=== PATIENT | female | born 1965 | race Caucasian/White ===

== ENCOUNTER 2023-12-19 11:58 | Emergency (ER) | payer OTHER, MEDICAID, SELFPAY ==
[2023-12-19] VITALS (15 sets, daily range): BP systolic 133–169; BP diastolic 63–89; PULSE 66–93; RESP 16–28; TEMP 37; O2SAT 92–98; BMI 25.6
--- NOTE | 2023-12-19 12:02 | DI.RAD.S_ITS ---
PROCEDURE: XR CHEST 1V INDICATIONS: chest pain TECHNIQUE: One view of the chest was acquired. COMPARISON: None. FINDINGS: Surgical changes and devices: None. Lungs and pleura: Lungs are clear. No pleural effusions or pneumothorax. Mediastinum: Mediastinal contours appear normal. Heart size is normal. Bones and chest wall: No suspicious bony lesions. Overlying soft tissues appear unremarkable. IMPRESSION: No acute cardiopulmonary abnormality is seen. Dictated by: Kodi Fierro M.D. on 12/19/2023 at 12:31 Approved by: Kodi Fierro M.D. on 12/19/2023 at 12:31
--- NOTE | 2023-12-19 12:06 | EKG_ITS ---
[place] [id number] [place] [id number] Test Date: 2023-12-19 [facility] Department: Room: Gender: Female Marine Scientist: GONZALO : 1965 Requested By: Order Number: [id number] Reading MD: Mauricio Howard Measurements Intervals Davey Rate: 87 P: 46 IN: 148 QRS: -1 QRSD: 86 T: 32 QT: 416 QTc: 500 Interpretive Statements Normal sinus rhythm Prolonged QT No prior tracing, significant artifact recommend repeat Electronically Signed On 12-22-2023 19:47:24 PDT by Mauricio Howard
--- NOTE | 2023-12-19 12:17 | ED_ITS ---
HPI - Chest Pain General Chief Complaint: Toxicology Problem Stated Complaint: poss heart attack, alc withdraws Time Seen by Provider: 12/19/23 12:05 Source: patient Mode of arrival: Ambulatory Limitations: no limitations Limitations: no limitations History of Present Illness HPI narrative: Patient is a 58-year-old female with past medical history of alcohol abuse, [place] comes into the ED from home for evaluation of right arm pain. States that this is similar to when she had a heart attack in the past. She states it is not the exact same, she states prior she had arm pain to her right arm which radiated to her neck and jaw, she has not experiencing this now. She states that she is trying to detox from alcohol and is not sure if this is associated with this. States that she normally drinks a 5th of vodka daily for the past several years, last drink was last night. States it was vodka. At time of initial evaluation patient not complaining of any shortness of breath but does appear severely anxious, with tremors. She is experiencing any SI or HI. Related Data Home Medications Medication Instructions Recorded Confirmed aspirin 81 mg tablet,delayed 81 mg PO DAILY 12/19/23 12/19/23 release atorvastatin 80 mg tablet 80 mg PO DAILY 12/19/23 12/19/23 fluoxetine 40 mg capsule 80 mg PO DAILY 12/19/23 12/19/23 hydroxyzine HCl 10 mg tablet 10 mg PO 3XD PRN anxiety 12/19/23 12/19/23 nitroglycerin 0.6 mg sublingual 0.6 mg sublingual DIRECTED PRN 12/19/23 12/19/23 tablet Chest Pain progesterone micronized 100 mg 100 mg PO ONCE PM 12/19/23 12/19/23 capsule ranolazine 1,000 mg 1,000 mg PO BID 12/19/23 12/19/23 tablet,extended release,12 hr trazodone 50 mg tablet 100 mg PO ONCE PM PRN Insomnia 12/19/23 12/19/23 Previous Rx's Medication Instructions Recorded chlordiazepoxide HCl 25 mg capsule See Rx Instructions .Route 12/19/23 .COMPLEX 12 doses #15 caps Allergies Allergy/AdvReac Type Severity Reaction Status Date / Time isosorbide [From Imdur] AdvReac Severe Headache Verified 12/19/23 12:42 Review of Systems Review of Systems Narrative: General: Anxiety HEENT: Denies headache, eye drainage, eye irritation, head trauma, sore throat, voice change Cardiovascular: Denies palpitations, shortness of breath, tachycardia, positive for chest pain and right arm pain Respiratory: Denies any shortness of breath, cough, wheeze, stridor GI/: Denies any abdominal pain, nausea, vomiting, diarrhea, bright red blood per rectum, melanotic stools, urinary frequency, urinary retention, dysuria, hematuria MSK: Denies any joint pain, muscle pains, swelling Skin: Denies any rashes, lesions, discoloration Neuro: Denies any headache, lightheadedness, dizziness, fainting, weakness Psych: Denies SI/HI Patient History Medical History (Updated 12/19/23 @ 17:37 by Mauricio Daugherty DO) Acute liver failure without hepatic coma Coronary artery disease involving coronary bypass graft of [place]ales heart with angina pectoris with documented spasm Acute coronary syndrome with high troponin Sleep disturbance Seasonal allergic rhinitis Alcohol use disorder Hypothyroidism History of substance abuse Major depressive disorder, recurrent PTSD (post-traumatic stress disorder) NSTEMI (non-ST elevated myocardial infarction) (~11/06/23) Surgical History (Updated 12/19/23 @ 12:41 by Hannah Kumar RN) History of bariatric surgery Social History Smoking Status: Current some day smoker Smoking Status: Current some day smoker tobacco type: cigarettes alcohol intake frequency: 3 or more drinks per day Alcohol type: beer and hard liquor Substance Use Type: does not use Exam Narrative Exam Narrative: General: Cooperative, comfortable, well-developed, positive for anxious, tremors mild diaphoresis noted HEENT: Normocephalic, atraumatic, PERRLA, normal sclera, eyelids normal, Neck: Active full range of motion, atraumatic Chest: Normal to inspection, negative crepitus, no overlying erythema ecchymosis Respiratory: Normal respiratory effort, not in acute respiratory distress, clear to auscultation bilaterally negative cough, wheeze, tachypnea, rhonchi, rales Cardiology: Regular rate rhythm negative gallop, murmur, rubs GI/: Normal to inspection, soft, nonrigid, no tenderness to palpation, exam deferred MSK: Full range of active range of motion of all 4 extremities, atraumatic Skin: No rashes lesions noted Neuro: Alert awake oriented x3, moves all 4 extremities spontaneously, cranial nerves intact, able to answer all questions appropriately follows commands appropriately Psych: Cooperative, negative suicidal or homicidal ideations Initial Vital Signs Initial Vital Signs: Vital Signs Pulse Rate 92 H 12/19/23 12:03 Pulse Oximetry 98 12/19/23 12:03 Scores HEART Score Heart Score history: Slightly Suspicious Heart Score EKG: Normal Heart Score Age: 45-64 years old Heart Score risk factors: 1-2 risk factors Heart Score troponin: < or = to normal limit Heart Score Total: 2 Course Course Course Narrative: Patient with CIWA 18 at my initial evaluation the patient Orders Ordered: ED Orders 12/19/23 12:02 XR chest 1V Stat EKG-12 Lead Stat 12/19/23 12:13 Acetaminophen Stat Complete Blood Count AUTO DIFF Stat Comprehensive Metabolic Panel Stat Ethanol (ETOH) Stat Free T4, Direct Thyroxine Stat Lipase Stat Magnesium Stat NT-proBNP (BNP-Adult 18+) Stat PTT Partial Thromboplastin Akbar Stat Prothrombin Time INR Stat Salicylate Stat Thyroid Stimulating Hormone Stat Troponin & CK Cardiac Panel Stat 12/19/23 13:32 Consult to [facility] - Extractions Technologist Stat 12/19/23 14:03 Troponin I Routine Discontinued Medications Aspirin (Aspirin 81 Mg Chew Tab) 324 mg PO NOW ONE Stop: 12/19/23 12:03 Last Admin: 12/19/23 12:23 Dose: 324 mg Documented By: ANN Folic Acid (Folic Acid 1 Mg Tablet) 1 mg PO NOW ONE Stop: 12/19/23 12:23 Last Admin: 12/19/23 13:26 Dose: 1 mg Documented By: HARPER Lorazepam (Lorazepam 2 Mg/Ml Inj) 1 mg IV NOW ONE Stop: 12/19/23 12:17 Last Admin: 12/19/23 12:24 Dose: 1 mg Documented By: ANN Lorazepam (Lorazepam 0.5 Mg Tablet) 1 mg PO NOW ONE Stop: 12/19/23 17:01 Last Admin: 12/19/23 17:12 Dose: 1 mg Documented By: ANN Ondansetron HCl (Ondansetron 4 Mg/2 Ml Inj) 4 mg IV NOW ONE Stop: 12/19/23 12:25 Last Admin: 12/19/23 12:30 Dose: 4 mg Documented By: ANN Thiamine HCl (Thiamine 100 Mg Tablet) 100 mg PO NOW ONE Stop: 12/19/23 12:23 Last Admin: 12/19/23 13:26 Dose: 100 mg Documented By: HARPER Vital Signs Vital signs: Vital Signs - 8 hr 12/19/23 12:03 12/19/23 12:04 12/19/23 12:04 Temperature Pulse Rate 92 H 88 Respiratory Rate Blood Pressure 133/81 Pulse Oximetry 98 97 Oxygen Delivery Method 12/19/23 12:10 12/19/23 12:30 12/19/23 12:30 Temperature 98.6 F Pulse Rate 93 H 78 Respiratory Rate 20 Blood Pressure 133/81 148/77 H Pulse Oximetry 97 95 Oxygen Delivery Method Room Air Room Air 12/19/23 13:00 12/19/23 13:00 12/19/23 13:30 Temperature Pulse Rate 71 68 Respiratory Rate 23 25 H Blood Pressure 144/72 H Pulse Oximetry 92 95 Oxygen Delivery Method Room Air 12/19/23 13:30 12/19/23 14:00 12/19/23 14:00 Temperature Pulse Rate 66 Respiratory Rate 18 Blood Pressure 155/72 H 160/74 H Pulse Oximetry 93 Oxygen Delivery Method 12/19/23 14:30 12/19/23 14:30 12/19/23 15:00 Temperature Pulse Rate 69 Respiratory Rate 17 Blood Pressure 145/65 H 155/83 H Pulse Oximetry 92 Oxygen Delivery Method Room Air 12/19/23 15:00 12/19/23 15:30 12/19/23 15:30 Temperature Pulse Rate 74 68 Respiratory Rate 16 17 Blood Pressure 153/67 H Pulse Oximetry 96 93 Oxygen Delivery Method Room Air Room Air 12/19/23 16:00 12/19/23 16:00 12/19/23 16:31 Temperature Pulse Rate 75 81 Respiratory Rate 28 H Blood Pressure 169/81 H Pulse Oximetry 95 Oxygen Delivery Method Room Air 12/19/23 16:32 12/19/23 16:32 12/19/23 17:00 Temperature Pulse Rate 77 87 Respiratory Rate 19 25 H Blood Pressure 165/89 H Pulse Oximetry 94 97 Oxygen Delivery Method Room Air 12/19/23 17:00 12/19/23 17:30 12/19/23 17:30 Temperature Pulse Rate 85 Respiratory Rate 25 H Blood Pressure 142/63 H 162/87 H Pulse Oximetry 96 Oxygen Delivery Method Room Air MDM - Chest Pain Lab Data 12/19/23 12:13 12/19/23 12:13 Labs: Lab Results 12/19/23 12/19/23 Range/Units 12:13 14:03 WBC 6.9 (4.5-11.0) X10^3/uL RBC 3.72 L (4.0-5.2) X10^6/uL Hgb 12.3 (12.0-16.0) g/dL Hct 36.0 (36-46) % MCV 96.7 (80-100) fL MCH 33.0 (26-34) PG MCHC 34.2 (30-36) % RDW 14.5 (11.6-14.8) % Plt Count 320 (150-400) X10^3/uL Neut % (Auto) 72.0 (50-75) % Lymph % (Auto) 20.6 L (25-40) % [place] % (Auto) 6.1 (3-14) % Eos % (Auto) 0.6 L (2-4) % Baso % (Auto) 0.7 (0-2) % Neut # (Auto) 5000 (7626-2219) /uL Lymph # (Auto) 1400 (1624-9926) /uL [place] # (Auto) 400 (0-900) /uL Eos # (Auto) 0 (0-450) /uL Baso # (Auto) 0 (0-100) /uL PT 11.8 (9.4-12.5) SECONDS INR 1.0 (0.9-1.3) APTT 34 (25.1-36.5) SECONDS Sodium 135 L (137-145) mmol/L Potassium 3.8 (3.4-5.1) mmol/L Chloride 101 (98-107) mmol/L Carbon Dioxide 28 (22-32) mmol/L BUN 13 (7-17) mg/dL Creatinine 0.68 (0.52-1.04) mg/dL Estimated GFR > 60 (>60) mL/min BUN/Creatinine Ratio 19.1 (6-22) Glucose 96 (80-110) mg/dL Calcium 8.6 (8.4-10.2) mg/dL Magnesium 1.7 (1.6-2.3) mg/dL Total Bilirubin 0.5 (0.2-1.3) mg/dL AST 55 H (14-36) IU/L ALT 41 H (<35) IU/L Alkaline Phosphatase 100 (38-126) U/L Total Creatine Kinase 96 (30-135) U/L Troponin I < 0.012 < 0.012 (0.01-0.034) ng/mL NT-Pro-B Natriuret Pep 415 H (<125) pg/mL Total Protein 7.1 (6.3-8.2) g/dL Albumin 3.9 (3.5-5.0) g/dL Globulin 3.2 (1.7-4.1) g/dL Albumin/Globulin Ratio 1.2 (1.0-2.8) Lipase 32 (23-300) U/L TSH 1.16 (0.47-4.68) uIU/mL Free T4 0.87 (0.78-2.19) ng/dL Salicylates 2.1 (<20) mg/dL Acetaminophen < 10 (10-30) ug/mL Ethyl Alcohol < 10 ( - 10) mg/dL Imaging Data Chest x-ray: Radiologist's Impression: [address] [address] XRay Report Signed Patient: Zurdo Londono MR#: [id number] : 1965 Acct:[id number] Age/Sex: 58 / F Date of Service: 12/19/23 Loc: ED Accession Number: [id number] Procedure: XR chest 1V Ordering Provider: Mauricio Daugherty D.O. PROCEDURE: XR CHEST 1V INDICATIONS: chest pain TECHNIQUE: One view of the chest was acquired. COMPARISON: None. FINDINGS: Surgical changes and devices: None. Lungs and pleura: Lungs are clear. No pleural effusions or pneumothorax. Mediastinum: Mediastinal contours appear normal. Heart size is normal. Bones and chest wall: No suspicious bony lesions. Overlying soft tissues appear unremarkable. IMPRESSION: No acute cardiopulmonary abnormality is seen. ECG Data Interpretation: EKG interpreted by ED physician sinus at 87 beats per minute QTC 500, significant amount artifact however no obvious signs of STEMI normal axis MDM Narrative Medical decision making narrative: Patient is a 58-year-old female past medical history of NSTEMI, hyperlipidemia, alcohol abuse comes into the ED for evaluation multiple complaints. States that she is trying to detox and is also experiencing right arm pain, she states this is similar to when she had a heart attack, however she states that when she was told she had a heart attack the pain radiated up into her neck and jaw, however this time this is not happening. States that she follows with [email or web address]. She also states that her last drink of alcohol was yesterday was 1/5 of vodka. States that she has been doing this for several years is asking for detox. 1304: Obtained records from [email or web address], reviewed records of patient's cardiac catheterization, patient did not have stent placed, patient did have severe stenosis in the small sub branch of a septal engine tester and mild stenosis of the LAD with a right dominant coronary, no other acute findings on the catheter report. This was performed on 11/05/2022. Patient's last echo performed on 11/05/2022 did show left ejection fraction at 55% Patient with heart score of 2, ecg no nischemic in nature, cxr noraml, trop negative x2. Patients symptoms more associated with etoh intox. Patient was seen by social and human services assistant here in the ED, she will follow up with out patient detox tomorrow. Patient will be sent home with rx of librium for etoh withdrawal. patient states her friend took all of the alcohol from her home and states that she will not drink and will go to rehab tomorrow for her bed. Patient well appearing non toxic, ciwa 3 at time of discharge. Discharge Plan Departure Patient Disposition: Home Clinical Impression: Alcoholic intoxication Activity Restrictions/Additional Instructions: Please read the discharge instructions sheet carefully and bring all papers to all doctor follow-up visits, as it may contain information that your doctor may want to see. Disease processes change and evolve, if your symptoms worsen or if you develop any new symptoms that are concerning to you please return for evaluation. Your evaluation today does not show any evidence of any life- threatening/serious illnesses requiring admission to the hospital or surgery. Please follow-up with your doctor for re-evaluation in approximately 1 day. Seek immediate medical attention for any worrisome symptoms. Prescriptions: New chlordiazepoxide HCl 25 mg capsule See Rx Instructions .ROUTE .COMPLEX Qty: 15 0RF Rx Instructions: 50 mg orally ;Day 1: 50mg [id number] 2: 50mg [id number] 3: 50mg [id number] 4: 50mg [id number] 5: 50mg POqhs No Action fluoxetine 40 mg capsule 80 mg PO DAILY trazodone 50 mg tablet 100 mg PO ONCE PM PRN (Reason: Insomnia) aspirin 81 mg tablet,delayed release (DR/EC) 81 mg PO DAILY nitroglycerin 0.6 mg tablet, sublingual 0.6 mg sublingual DIRECTED PRN (Reason: Chest Pain) hydroxyzine HCl 10 mg tablet 10 mg PO 3XD PRN (Reason: anxiety) progesterone micronized 100 mg capsule 100 mg PO ONCE PM ranolazine 1,000 mg tablet extended release 12 hr 1,000 mg PO BID atorvastatin 80 mg tablet 80 mg PO DAILY Stand Alone Forms: Patient Portal/API
[2023-12-19 12:20] LABS: Add Manual Diff / Slide Review NO; Basophils Absolute Auto 0 /uL (0-100); Basophils Percent Auto 0.7 % (0-2); Eosinophils Absolute Auto 0 /uL (0-450); Eosinophils Percent Auto 0.6 % (2-4); Hemoglobin 12.3 g/dL (12.0-16.0); Lymphocytes Absolute Auto 1400 /uL (1100-4500); Lymphocytes Percent Auto 20.6 % (25-40); Mean Corpuscular HGB Conc 34.2 % (30-36); Mean Corpuscular Volume 96.7 fL (80-100); Monocytes Absolute Auto 400 /uL (0-900); Monocytes Percent Auto 6.1 % (3-14); Neutrophils Absolute Auto 5000 /uL (1500-7000); Platelet Count 320 X10^3/uL (150-400); Red Blood Cell Count 3.72 X10^6/uL (4.0-5.2); Red Cell Distribution Width 14.5 % (11.6-14.8); White Blood Cell Count 6.9 X10^3/uL (4.5-11.0)
[2023-12-19] MEDS: ASPIRIN 81 MG CHEW TAB 324 MG PO (12:23)
[2023-12-19] MEDS: LORazepam 2 MG/ML INJ 1 MG IV (12:24)
[2023-12-19 12:28] LABS: Prothrombin Time 11.8 SECONDS (9.4-12.5)
[2023-12-19] MEDS: ONDANSETRON 4 MG/2 ML INJ IV (12:30)
[2023-12-19 12:31] LABS: PTT Partial Thromboplastin Tim 34 SECONDS (25.1-36.5)
[2023-12-19 12:33] LABS: Acetaminophen < 10 ug/mL (10-30); Alanine Aminotransferase 41 IU/L (<35); Albumin 3.9 g/dL (3.5-5.0); Albumin Globulin Ratio 1.2 (1.0-2.8); Alkaline Phosphatase 100 U/L (38-126); Aspartate Aminotransferase 55 IU/L (14-36); BUN Creatinine Ratio 19.1 (6-22); Bilirubin Total 0.5 mg/dL (0.2-1.3); Blood Urea Nitrogen 13 mg/dL (7-17); Calcium 8.6 mg/dL (8.4-10.2); Carbon Dioxide 28 mmol/L (22-32); Chloride 101 mmol/L (98-107); Creatine Kinase 96 U/L (30-135); Estimated Glomerular Filt Rate > 60 mL/min (>60); Ethanol (ETOH) < 10 mg/dL; Globulin 3.2 g/dL (1.7-4.1); Glucose 96 mg/dL (80-110); Lipase 32 U/L (23-300); Magnesium 1.7 mg/dL (1.6-2.3); Potassium 3.8 mmol/L (3.4-5.1); Salicylate 2.1 mg/dL (<20); Sodium 135 mmol/L (137-145); Total Protein 7.1 g/dL (6.3-8.2)
[2023-12-19 12:34] LABS: HEMOLYSIS 55 (0-50)
[2023-12-19 12:44] LABS: NT-proBNP (BNP-Adult 18+) 415 pg/mL (<125); Troponin I < 0.012 ng/mL (0.01-0.034)
[2023-12-19 12:55] LABS: Free T4, Direct Thyroxine 0.87 ng/dL (0.78-2.19)
[2023-12-19 13:09] LABS: Thyroid Stimulating Hormone 1.16 uIU/mL (0.47-4.68)
[2023-12-19] MEDS: THIAMINE 100 MG TABLET PO (13:26)
[2023-12-19] MEDS: FOLIC ACID 1 MG TABLET PO (13:26)
[2023-12-19 14:50] LABS: Troponin I < 0.012 ng/mL (0.01-0.034)
--- NOTE | 2023-12-19 17:02 | CM.SWNOTE ---
ED CUSTOMER SUCCESS SPECIALIST Assessment Note: CUSTOMER SUCCESS SPECIALIST - Anchor Tacker Assessment CUSTOMER SUCCESS SPECIALIST/Anchor Tacker Assessment Time Spent with Patient Start date 12/19/23 Visit Start Time 15:45 End date 12/19/23 Visit End Time 16:00 Total time Care Management spent on 15 minutes patient visit-in minutes Substance Abuse Screening Include Onset, Duration, Intensity Presenting Problem Patient presents to the ED for ETOH withdrawal, requesting assistance with detox. Precipitating Event(s) Patient reports she has been drinking a lot which includes 1/2 a bottle of vodka and several [place] drinks , daily. Patient explains she has been under a lot of stress due to a recent move from [place] to [place]. Patient Strengths Patient has attempted detox and rehab in the past, was attempting outpatient treatment. Patient is self- aware and communicative. Current Behavioral Health Provider(s) Patient was seeing a [facility], Provider, Ph. # SUDP at [facility] ( ). Patient's PCP is Dr. Jonathon Bello at [facility] in [place]. Family Hx of Behavioral Abuse Patient explains there is hx of ETOH use on her mother's side. Rehab Facilities? ((Date(s), Location(s) 30-day Rehab at [facility], pt could not recall dates (recent). History of Withdrawal? Seizures? Patient has withdrawn in the past and experienced hallucinations and seizures. Longest Period of Sobriety 6 months. Psychosocial information & Support Patient is a 58yo female, Systems resident of [place], supported by her friend, Ying Delacruz and her brother . School/Work Patient is not currently working. Legal Concerns Legal Matters - Outstanding Issues None reported. Mental Status Orientation (Person/Place/Time) AOx3 Stated Mood calmer Affect (Congruent with Mood?) Congruent with mood, euthymic Thought Content - Specify/Describe Patient explains she sometimes Obsessions, Delusions, Hallucinations hears conversations with family members who are talking about me. Patient denies any Visual hallucinations. Thought Processes (Zhbyvdg-Jdsauzri-Suap Logical, coherent Yuxyaair-Hdgjmqeg-Xxaootdnuw- Lnriksepcljgza-Wlouymf-Jegjobjwbsmb- Thought Blocking) Speech (Gfmrcc-Mhsn-Yohqlgo-Rapid-Soft- Normal Loud-Pressured) Motor (Bujlnp-Sqzqsktie-Zicg-Other) Normal, tremulous Insight (Ohhc-Ianb-Eqqp/Limited) Fair Judgement (Ftpp-Jthx-Wvko/Limited) Fair Impulse Control (Adequate-Impaired) Impaired Memory (Myuxsbzuf-Jqobik-Xucyjz, Intact Impaired-Intact) Concentration (Intact-Impaired) Intact Attention (Intact-Impaired) Intact Behavior (Appropriate-Inappropriate) Appropriate Additional Comment Patient is calm, cooperative and communciative during assessment. Risk Assessment Suicidal Ideation (Plan) No Homicidal Ideation (Plan) No Intervention Intervention CUSTOMER SUCCESS SPECIALIST meets with patient. Patient reports daily ETOH use and is requesting detox referral, pt was able to give history of detox and rehab. Patient is hopeful for more intensive [facility] counseling and medication therapy, post detox . At this time, it is the opinion of this CUSTOMER SUCCESS SPECIALIST that patient would benefit from ETOH detox and [facility] IOP to follow. CUSTOMER SUCCESS SPECIALIST informs ED provider, Dr. Daugherty who indicates agreement. CUSTOMER SUCCESS SPECIALIST informs QUINN Chávez . Plan RA Plan Once patient is medically clear, ED staff will attempt to find inpatient placement for patient. MJ Luis
[2023-12-19] MEDS: LORazepam 0.5 MG TABLET 1 MG PO (17:12)
--- NOTE | 2023-12-19 17:37 | CM.SWNOTE ---
ED DEPUTY HEAD Note: ED DEPUTY HEAD [facility], it is reported there are beds available and to send a packet for review. ED DEPUTY HEAD called [facility], it is reported there are no beds available today. ED DEPUTY HEAD sent a packet to [facility], it is reported that beds are no longer available and that pt will be reviewed for tomorrow. ED DEPUTY HEAD coordinated a phone screening with pt with [facility], provided phone number. Pt briefed regarding review of packet for intake tomorrow, pt verbalized understanding. Pt feels safe with discharging home with librium prescription, all alcohol has been disposed of and removed from her home by her friend. Pt to follow up with [facility] tomorrow morning. ED Provider and RN were briefed with the above, verbalized understanding. Plan: Pt to follow up with [facility] tomorrow morning with number provided, follow up with [facility] for [facility] IOP following detox. MJ Luis
--- NOTE | 2023-12-19 18:45 | PC.NURSE ---
Confirmed prescription w/ Dr. Martinez per [facility] request. Quantity needed to be adjusted to quantity sufficient
== END 2023-12-19 18:02 | disposition home or self-care (01) ==
PROVIDERS: Emergency Provider Student in an Organized Health Care Education/Training Program
DX: F10.129 Alcohol abuse with intoxication, unspecified (principal); R07.9 Chest pain, unspecified; E78.5 Hyperlipidemia, unspecified; I25.2 Old myocardial infarction
CPT/HCPCS: 36415; 71045; 80053; 80320; 80329; 82550; 83690; 83735; 83880; 84439; 84443; 84484; 85025; 85610; 85730; 93005; 96374; 96375; 99284; G0480; J2060; J2405

== ENCOUNTER 2024-04-03 17:03 | Emergency (ER) | payer OTHER, SELFPAY ==
[2024-04-03] VITALS (11 sets, daily range): BP systolic 116–173; BP diastolic 63–95; PULSE 70–94; RESP 17–25; TEMP 36.7; O2SAT 91–99
[2024-04-03 17:19] LABS: Add Manual Diff / Slide Review NO; Basophils Absolute Auto 0 /uL (0-100); Basophils Percent Auto 0.3 % (0-2); Eosinophils Absolute Auto 0 /uL (0-450); Eosinophils Percent Auto 0.7 % (2-4); Hematocrit 42.9 % (36-46); Hemoglobin 14.2 g/dL (12.0-16.0); Lymphocytes Absolute Auto 1900 /uL (1100-4500); Lymphocytes Percent Auto 35.9 % (25-40); Mean Corpuscular HGB Conc 33.2 % (30-36); Mean Corpuscular Hemoglobin 33.5 PG (26-34); Monocytes Absolute Auto 600 /uL (0-900); Monocytes Percent Auto 11.6 % (3-14); Neutrophils Absolute Auto 2700 /uL (1500-7000); Neutrophils Percent Auto 51.5 % (50-75); Platelet Count 319 X10^3/uL (150-400); Red Blood Cell Count 4.25 X10^6/uL (4.0-5.2); Red Cell Distribution Width 14.6 % (11.6-14.8); White Blood Cell Count 5.3 X10^3/uL (4.5-11.0)
[2024-04-03 17:27] LABS: Alanine Aminotransferase 97 IU/L (<35); Albumin 3.7 g/dL (3.5-5.0); Albumin Globulin Ratio 1.2 (1.0-2.8); Alkaline Phosphatase 149 U/L (38-126); Aspartate Aminotransferase 208 IU/L (14-36); BUN Creatinine Ratio 16.2 (6-22); Bilirubin Total 0.7 mg/dL (0.2-1.3); Blood Urea Nitrogen 11 mg/dL (7-17); Calcium 8.4 mg/dL (8.4-10.2); Carbon Dioxide 24 mmol/L (22-32); Chloride 99 mmol/L (98-107); Estimated Glomerular Filt Rate > 60 mL/min (>60); Ethanol (ETOH) < 10 mg/dL; Globulin 3.2 g/dL (1.7-4.1); Glucose 107 mg/dL (80-110); HEMOLYSIS 34 (0-50); Potassium 3.5 mmol/L (3.4-5.1); Sodium 134 mmol/L (137-145); Total Protein 6.9 g/dL (6.3-8.2)
[2024-04-03 17:41] LABS: Lipase 75 U/L (23-300)
[2024-04-03] MEDS: PHENobarbital 65 MG/ML VIAL 260 MG IV (17:42)
[2024-04-03] MEDS: LORazepam 2 MG/ML INJ 1 MG IV (17:42)
[2024-04-03] MEDS: SODIUM CHLORIDE 0.9% 1,000 ML 1000 ML IV (17:42)
--- NOTE | 2024-04-03 18:22 | EKG_ITS ---
[address] [address] Test Date: 2024-04-03 Pat [facility] Department[facility] Room: Gender: Female Access Database Developer: CASSI : 1965 Requested By: Order Number: [id number] Reading MD: Jt Padron Measurements Intervals [place] Rate: 86 P: 58 AK: 180 QRS: -2 QRSD: 74 T: 16 QT: 410 QTc: 490 Interpretive Statements Normal sinus rhythm Prolonged QT Electronically Signed On 04-05-2024 18:32:36 PST by Jt Padron
--- NOTE | 2024-04-03 18:57 | ED.ALCOHOL ---
HPI - Alcohol General Chief Complaint: Toxicology Problem Stated Complaint: etoh withdrawal Time Seen by Provider: 04/03/24 18:56 Source: patient, EMS, RN notes reviewed and old records reviewed Mode of arrival: EMS Limitations: no limitations History of Present Illness HPI narrative: 59-year-old female past medical history of alcohol abuse, [place] presents with complaint of alcohol withdrawal. Patient states last full drink was yesterday had some sips today received 4 mg of Versed and transport with EMS with a reported CIWA of greater than 15 per EMS. Describes tremors reports seizures with withdrawal in the past. Patient states she was recently been binge drinking had missed several doctors appointments recently. She has not had any hallucinations or seizure activity, she has had some mild tremors some nausea and vomiting, no chest pain no shortness of breath she was felt very anxious. She was has a lot of diarrhea but states that has actually been going on for some time. States she recently was treated for kidney infection which has not improved she denies any urinary symptoms. Home medications include ran a lysine, atorvastatin, metoprolol,, Prozac, hydroxyzine, trazodone vitamins B1 and B12 as well as vitamins. Prior surgeries or hernia repair, appendectomy accept for endometriosis. Patient states she had a heart catheterization with her [place] but did not require cardiac stents. Has not allergy to isosorbide described as headache. Occasional tobacco but not regularly. States she was having about a 5th of vodka and claws daily. No, no recreational drugs. Dr. Anton is her primary care physician. She does still follow regularly with Cardiology. Related Data Home Medications Medication Instructions Recorded Confirmed aspirin 81 mg tablet,delayed 81 mg PO DAILY 12/19/23 12/19/23 release atorvastatin 80 mg tablet 80 mg PO DAILY 12/19/23 12/19/23 fluoxetine 40 mg capsule 80 mg PO DAILY 12/19/23 12/19/23 hydroxyzine HCl 10 mg tablet 10 mg PO 3XD PRN anxiety 12/19/23 12/19/23 nitroglycerin 0.6 mg sublingual 0.6 mg sublingual DIRECTED PRN 12/19/23 12/19/23 tablet Chest Pain progesterone micronized 100 mg 100 mg PO ONCE PM 12/19/23 12/19/23 capsule ranolazine 1,000 mg 1,000 mg PO BID 12/19/23 12/19/23 tablet,extended release,12 hr trazodone 50 mg tablet 100 mg PO ONCE PM PRN Insomnia 12/19/23 12/19/23 Previous Rx's Medication Instructions Recorded chlordiazepoxide HCl 25 mg capsule See Rx Instructions .Route 12/19/23 .COMPLEX 12 doses #15 caps chlordiazepoxide HCl 25 mg capsule See Rx Instructions .Route 04/03/24 .COMPLEX #11 caps Allergies Allergy/AdvReac Type Severity Reaction Status Date / Time isosorbide [From Imdur] AdvReac Severe Headache Verified 04/03/24 17:30 Review of Systems Review of Systems ROS Unobtainable: All systems reviewed & are unremarkable except as noted in HPI and below Patient History Medical History Acute liver failure without hepatic coma Coronary artery disease involving coronary bypass graft of [place] heart with angina pectoris with documented spasm Acute coronary syndrome with high troponin Sleep disturbance Seasonal allergic rhinitis Alcohol use disorder Hypothyroidism History of substance abuse Major depressive disorder, recurrent PTSD (post-traumatic stress disorder) NSTEMI (non-ST elevated myocardial infarction) (~11/06/23) Surgical History History of bariatric surgery Social History Smoking Status: Current some day smoker Smoking Status: Current some day smoker tobacco type: cigarettes alcohol intake frequency: 3 or more drinks per day Alcohol type: beer and hard liquor Exam Narrative Exam Narrative: GENERAL: Alert and oriented x three, female in mild distress. HEENT: Head normocephalic, atraumatic, EOMI, pupils reactive, face symmetric, moist mucous membranes NECK: Supple, full range of motion CARDIOVASCULAR: Regular rate and rhythm without murmurs, rubs or gallops. RESPIRATORY: Breath sounds equal bilaterally, no wheezes rales or rhonchi. ABDOMEN: Soft, nontender. Normoactive bowel sounds all 4 quadrants. No guarding or rebound, rigidity, no mass : No CVA tenderness EXTREMITIES: Normal range of motion, no clubbing or edema. Neurovascularly intact NEUROLOGICAL: Cranial nerves II through XII grossly intact. Moving all extremities. No tremor. SKIN: Warm, dry, no petechiae, no rashes or lesions. Initial Vital Signs Initial Vital Signs: Vital Signs Temperature 98.1 F 04/03/24 17:05 Pulse Rate 84 04/03/24 17:05 Respiratory Rate 17 04/03/24 17:05 Blood Pressure 173/95 H 04/03/24 17:05 Pulse Oximetry 99 04/03/24 17:05 Oxygen Delivery Method Room Air 04/03/24 17:05 Course Orders Ordered: Discontinued Medications Hydroxyzine HCl (Hydroxyzine Hcl 25 Mg Tablet) 25 mg PO NOW ONE Stop: 04/03/24 20:34 Last Admin: 04/03/24 20:44 Dose: 25 mg Documented By: EPIFANIO Sodium Chloride (Normal Saline 0.9%) 1,000 mls @ 1,000 mls/hr IV BOLUS ONE Stop: 04/03/24 18:11 Last Infusion: 04/03/24 18:32 Dose: Infused Documented By: Infusion: 04/03/24 18:32 Dose: 0 mls/hr Documented By: Admin: 04/03/24 17:42 Dose: 1,000 mls/hr Documented By: GREGORY Lorazepam (Lorazepam 2 Mg/Ml Inj) 1 mg IV NOW ONE Stop: 04/03/24 17:13 Last Admin: 04/03/24 17:42 Dose: 1 mg Documented By: GREGORY Phenobarbital (Phenobarbital 65 Mg/Ml Vial) 260 mg IV NOW ONE Stop: 04/03/24 17:13 Last Admin: 04/03/24 17:42 Dose: 260 mg Documented By: GREGORY Vital Signs Vital signs: Vital Signs - 8 hr 04/03/24 17:05 04/03/24 17:09 04/03/24 17:30 Temperature 98.1 F Pulse Rate 84 94 H 84 Respiratory Rate 17 25 H 17 Blood Pressure 173/95 H Pulse Oximetry 99 98 95 Oxygen Delivery Method Room Air 04/03/24 17:46 04/03/24 17:46 04/03/24 18:00 Temperature Pulse Rate 78 76 Respiratory Rate 20 19 Blood Pressure 148/67 H Pulse Oximetry 97 91 Oxygen Delivery Method 04/03/24 18:00 04/03/24 18:30 04/03/24 18:30 Temperature Pulse Rate 70 Respiratory Rate 20 Blood Pressure 134/71 140/79 Pulse Oximetry 91 Oxygen Delivery Method 04/03/24 19:00 04/03/24 19:00 Temperature Pulse Rate 72 Respiratory Rate 20 Blood Pressure 116/63 Pulse Oximetry 91 Oxygen Delivery Method MDM - Alcohol Lab Data 04/03/24 16:50 04/03/24 16:50 Labs: Lab Results 04/03/24 Range/Units 16:50 WBC 5.3 (4.5-11.0) X10^3/uL RBC 4.25 (4.0-5.2) X10^6/uL Hgb 14.2 (12.0-16.0) g/dL Hct 42.9 (36-46) % MCV 101.0 H (80-100) fL MCH 33.5 (26-34) PG MCHC 33.2 (30-36) % RDW 14.6 (11.6-14.8) % Plt Count 319 (150-400) X10^3/uL Neut % (Auto) 51.5 (50-75) % Lymph % (Auto) 35.9 (25-40) % [place] % (Auto) 11.6 (3-14) % Eos % (Auto) 0.7 L (2-4) % Baso % (Auto) 0.3 (0-2) % Neut # (Auto) 2700 (5766-8924) /uL Lymph # (Auto) 1900 (1275-5381) /uL [place] # (Auto) 600 (0-900) /uL Eos # (Auto) 0 (0-450) /uL Baso # (Auto) 0 (0-100) /uL Sodium 134 L (137-145) mmol/L Potassium 3.5 (3.4-5.1) mmol/L Chloride 99 (98-107) mmol/L Carbon Dioxide 24 (22-32) mmol/L BUN 11 (7-17) mg/dL Creatinine 0.68 (0.52-1.04) mg/dL Estimated GFR > 60 (>60) mL/min BUN/Creatinine Ratio 16.2 (6-22) Glucose 107 (80-110) mg/dL Calcium 8.4 (8.4-10.2) mg/dL Total Bilirubin 0.7 (0.2-1.3) mg/dL AST 208 H (14-36) IU/L ALT 97 H (<35) IU/L Alkaline Phosphatase 149 H (38-126) U/L Total Protein 6.9 (6.3-8.2) g/dL Albumin 3.7 (3.5-5.0) g/dL Globulin 3.2 (1.7-4.1) g/dL Albumin/Globulin Ratio 1.2 (1.0-2.8) Lipase 75 (23-300) U/L Ethyl Alcohol < 10 ( - 10) mg/dL ECG Data Attestation: I personally reviewed and interpreted this ECG as follows: Prior ECG tracings: available for review Interpretation: Normal sinus rhythm rate 86 VA 180 QRS is 74 QTC of 490, no acute ST elevation or depression noted. Patient has prior EKG from 12/19/2023 overall appears similar. MDM Narrative Medical decision making narrative: [age] female presents with complaint of alcohol withdrawal had reported CIWA greater than 15 in the field with EMS received Versed, also received fentanyl Monika tall and lorazepam here in the department she was feeling significantly improved CIWA prior to my evaluation was 1. Labs show white count of 5.3 hemoglobin of 14 platelets of 319. Sodium is 134 potassium 3.5 chloride 99 CO2 is 24 BUN 11 creatinine 0.68 glucose of 107 bilirubin is 0.7 with a AST of 208 ALT of 97 alk-phos of 149 lipase is 75. Alcohol is less than 10 Patient received lorazepam, phenobarbital and 1 L of normal saline. Patient is feeling much improved at this time. Discussed with patient if she was interested in having it inpatient detox versus outpatient treatment. Patient's initially unsure because she has a dog in his unsure if she has anyone that can watch her dog. After further discussion patient elects to return. She continues to feel improved. We will give a short course of oral medication. She was open KEY ACCOUNT MANAGER reaching out to the patient tomorrow. Discharge Plan Departure Patient Disposition: Home Clinical Impression: Alcohol withdrawal syndrome Instructions: DI for Delirium Tremens Activity Restrictions/Additional Instructions: Our social service coordinator should reach out to you tomorrow to talk about options for outpatient treatment, if they have not called by 1-2 p.m. tomorrow you can call the ER at [phone] and asked to speak to them. Can take medication as prescribed this was sent to [facility]. This medication can make you sleepy not drive, perform hazardous activities or make any major decisions while taking it. Return for fevers, any hallucinations, increasing tremors, shaking, seizures, persistent vomiting, lightheadedness or passing out or other new or concerning changes. Prescriptions: New chlordiazepoxide HCl 25 mg capsule See Rx Instructions .ROUTE .COMPLEX Qty: 11 0RF Rx Instructions: Take 1 tablet p.o. Q 6 hours times 24 hours then 1 tablet p.o. q.8 hours times 24 hours, then 1 tablet p.o. q.12 hours times 24 hours, then 1 tablet p.o. q.h.s. x2 No Action fluoxetine 40 mg capsule 80 mg PO DAILY trazodone 50 mg tablet 100 mg PO ONCE PM PRN (Reason: Insomnia) aspirin 81 mg tablet,delayed release (DR/EC) 81 mg PO DAILY nitroglycerin 0.6 mg tablet, sublingual 0.6 mg sublingual DIRECTED PRN (Reason: Chest Pain) hydroxyzine HCl 10 mg tablet 10 mg PO 3XD PRN (Reason: anxiety) progesterone micronized 100 mg capsule 100 mg PO ONCE PM ranolazine 1,000 mg tablet extended release 12 hr 1,000 mg PO BID atorvastatin 80 mg tablet 80 mg PO DAILY chlordiazepoxide HCl 25 mg capsule See Rx Instructions .ROUTE .COMPLEX Qty: 15 0RF Rx Instructions: 50 mg orally ;Day 1: 50mg [id number] 2: 50mg [id number] 3: 50mg [id number] 4: 50mg [id number] 5: 50mg POqhs Stand Alone Forms: Patient Portal/API/Survey
[2024-04-03] MEDS: hydrOXYzine HCL 25 MG TABLET PO (20:44)
--- NOTE | 2024-04-05 14:07 | CM.SWNOTE ---
ED COOK MANAGER Follow Up Note: Pt is a 59yo female, resident of [place], presented to the ED for ETOH withdrawal. Pt recently moved to [place] from [place]. ED COOK MANAGER consulted post-discharge to coordinate outpatient [facility] referral. Reviewed chart and team rounds for pt's medical status and initial discharge needs. COOK MANAGER called patient, introduced self and role. Pt reports she is hopeful for [facility] IOP closest to [place]. ED COOK MANAGER discussed a referral to [facility] and scheduled pt for soonest appointment on 04/06/2024 at 4:30pm at their [facility] for a [facility] Assessment. Pt appreciative, notified that appointment information will be sent to their email address: [email or web address]. Plan: Pt discharged and will follow up with [facility] Assessment on 04/06/2024 at 4:30pm with [facility] for [facility] IOP treatment. PEPITO Luis
== END 2024-04-03 21:02 | disposition home or self-care (01) ==
PROVIDERS: Emergency Medicine; Emergency Provider Emergency Medicine
DX: F10.239 Alcohol dependence with withdrawal, unspecified (principal); I25.2 Old myocardial infarction; Y90.0 Blood alcohol level of less than 20 mg/100 ml; Z98.61 Coronary angioplasty status; F17.200 Nicotine dependence, unspecified, uncomplicated
CPT/HCPCS: 36415; 80053; 80320; 83690; 85025; 93005; 96361; 96374; 96375; 99284; A9270; J2060; J2560

== ENCOUNTER 2024-05-29 06:38 | Emergency (ER) | payer OTHER, SELFPAY ==
[2024-05-29] VITALS (23 sets, daily range): BP systolic 134–196; BP diastolic 62–111; PULSE 77–116; RESP 16–26; TEMP 36.6; O2SAT 93–98; BMI 23.8
[2024-05-29 07:02] LABS: Add Manual Diff / Slide Review NO; Basophils Absolute Auto 100 /uL (0-100); Eosinophils Absolute Auto 100 /uL (0-450); Eosinophils Percent Auto 0.9 % (2-4); Hemoglobin 13.1 g/dL (12.0-16.0); Lymphocytes Absolute Auto 2600 /uL (1100-4500); Lymphocytes Percent Auto 39.3 % (25-40); Mean Corpuscular HGB Conc 33.5 % (30-36); Mean Corpuscular Hemoglobin 33.6 PG (26-34); Mean Corpuscular Volume 100.2 fL (80-100); Monocytes Absolute Auto 400 /uL (0-900); Monocytes Percent Auto 6.4 % (3-14); Neutrophils Absolute Auto 3400 /uL (1500-7000); Neutrophils Percent Auto 52.4 % (50-75); Platelet Count 439 X10^3/uL (150-400); Red Blood Cell Count 3.89 X10^6/uL (4.0-5.2); Red Cell Distribution Width 14.9 % (11.6-14.8); White Blood Cell Count 6.6 X10^3/uL (4.5-11.0)
[2024-05-29] MEDS: PHENobarbital 65 MG/ML VIAL 130 MG IV ×2 (07:04→08:52)
[2024-05-29 07:12] LABS: Acetaminophen < 10 ug/mL (10-30); Alanine Aminotransferase 56 IU/L (<35); Albumin 4.3 g/dL (3.5-5.0); Albumin Globulin Ratio 1.3 (1.0-2.8); Alkaline Phosphatase 118 U/L (38-126); Aspartate Aminotransferase 72 IU/L (14-36); BUN Creatinine Ratio 17.7 (6-22); Bilirubin Total 0.7 mg/dL (0.2-1.3); Blood Urea Nitrogen 11 mg/dL (7-17); Calcium 8.7 mg/dL (8.4-10.2); Carbon Dioxide 21 mmol/L (22-32); Chloride 104 mmol/L (98-107); Estimated Glomerular Filt Rate > 60 mL/min (>60); Ethanol (ETOH) 64 mg/dL; Globulin 3.2 g/dL (1.7-4.1); Glucose 81 mg/dL (80-110); HEMOLYSIS 59 (0-50); Magnesium 1.7 mg/dL (1.6-2.3); Potassium 3.3 mmol/L (3.4-5.1); Salicylate < 1.0 mg/dL (<20); Sodium 141 mmol/L (137-145); Total Protein 7.5 g/dL (6.3-8.2)
--- NOTE | 2024-05-29 07:18 | ED_ITS ---
HPI - Alcohol General Chief Complaint: Toxicology Problem Stated Complaint: Wants to Detox Time Seen by Provider: 05/29/24 06:48 Source: patient Mode of arrival: Wheelchair Limitations: no limitations History of Present Illness HPI narrative: 59-year-old female history of alcohol abuse who presents requesting detox states she ?lost a few days. Patient drinks a 5th of vodka daily and a 6 pack of white claws etc. last drink was yesterday. Supposed to go to [facility] detox yesterday lost track of time and did not present. Patient states has had hallucinations and seizures with withdrawal in the past. Patient states she has been tremulous, had nausea and vomiting. Denies any seizure activity or hallucinations, no chest pain or shortness of breath no abdominal back or flank pain. No diarrhea. Patient does take medication for cholesterol, hypertension, anxiety, GERD, insomnia. States she was had a prior bariatric surgery. Has allergy to Imdur. States rare tobacco, denies any recreational drugs. Patient states she was seeking inpatient detox. Related Data Home Medications Medication Instructions Recorded Confirmed aspirin 81 mg tablet,delayed 81 mg PO DAILY 12/19/23 12/19/23 release atorvastatin 80 mg tablet 80 mg PO DAILY 12/19/23 12/19/23 fluoxetine 40 mg capsule 80 mg PO DAILY 12/19/23 12/19/23 hydroxyzine HCl 10 mg tablet 10 mg PO 3XD PRN anxiety 12/19/23 12/19/23 nitroglycerin 0.6 mg sublingual 0.6 mg sublingual DIRECTED PRN 12/19/23 12/19/23 tablet Chest Pain progesterone micronized 100 mg 100 mg PO ONCE PM 12/19/23 12/19/23 capsule ranolazine 1,000 mg 1,000 mg PO BID 12/19/23 12/19/23 tablet,extended release,12 hr trazodone 50 mg tablet 100 mg PO ONCE PM PRN Insomnia 12/19/23 12/19/23 hydroxyzine HCl 10 mg tablet 10 mg PO 3XD PRN anxiety 05/29/24 05/29/24 levetiracetam 500 mg tablet 500 mg PO BID 05/29/24 05/29/24 lorazepam 1 mg tablet 1 mg PO PRN PRN Anxiety 05/29/24 05/29/24 metoprolol tartrate 25 mg tablet 25 mg PO BID 05/29/24 05/29/24 naltrexone 50 mg tablet 50 mg PO DAILY 05/29/24 05/29/24 ondansetron 4 mg disintegrating 4 mg PO PRN PRN Nausea And Vomiting 05/29/24 05/29/24 tablet pantoprazole 40 mg tablet,delayed 40 mg PO DAILY 05/29/24 05/29/24 release Previous Rx's Medication Instructions Recorded chlordiazepoxide HCl 25 mg capsule See Rx Instructions .Route 12/19/23 .COMPLEX 12 doses #15 caps chlordiazepoxide HCl 25 mg capsule See Rx Instructions .Route 04/03/24 .COMPLEX #11 caps Allergies Allergy/AdvReac Type Severity Reaction Status Date / Time isosorbide [From Imdur] AdvReac Severe Headache Verified 04/03/24 17:30 Review of Systems Review of Systems ROS Unobtainable: All systems reviewed & are unremarkable except as noted in HPI and below Patient History Medical History Acute liver failure without hepatic coma Coronary artery disease involving coronary bypass graft of [place] heart with angina pectoris with documented spasm Acute coronary syndrome with high troponin Sleep disturbance Seasonal allergic rhinitis Alcohol use disorder Hypothyroidism History of substance abuse Major depressive disorder, recurrent PTSD (post-traumatic stress disorder) NSTEMI (non-ST elevated myocardial infarction) (~11/06/23) Surgical History History of bariatric surgery Social History Smoking Status: Current some day smoker Smoking Status: Current some day smoker tobacco type: cigarettes alcohol intake frequency: 3 or more drinks per day Alcohol type: beer and hard liquor Exam Narrative Exam Narrative: GENERAL: Alert and oriented female in moderate distress. HEENT: Head normocephalic, atraumatic, EOMI, pupils reactive, face symmetric, moist mucous membranes NECK: Supple, full range of motion CARDIOVASCULAR: Regular rate and rhythm without murmurs, rubs or gallops. No JVD. No edema bilateral lower extremities. RESPIRATORY: Breath sounds equal bilaterally, no wheezes rales or rhonchi. ABDOMEN: Soft, nontender. Normoactive bowel sounds all 4 quadrants. No guarding or rebound, rigidity, no mass : No CVA tenderness EXTREMITIES: Normal range of motion, no clubbing or edema. Neurovascularly intact NEUROLOGICAL: Cranial nerves II through XII grossly intact. Moving all extremities, patient is tremulous. SKIN: Warm, dry, no petechiae, no rashes or lesions. Initial Vital Signs Initial Vital Signs: Vital Signs Pulse Rate 103 H 05/29/24 06:45 Respiratory Rate 21 05/29/24 06:45 Pulse Oximetry 97 05/29/24 06:45 Course Orders Ordered: ED Orders 05/29/24 10:00 Urinalysis and Microscopic Stat Urine Drug Screen, Rapid Stat 05/29/24 13:00 COVID19 -Nasal RAPID Stat Discontinued Medications Lorazepam (Lorazepam 0.5 Mg Tablet) 1 mg PO NOW ONE Stop: 05/29/24 13:10 Last Admin: 05/29/24 13:19 Dose: 1 mg Documented By: TALYA Ondansetron HCl (Ondansetron 4 Mg/2 Ml Inj) 4 mg IV Q2HR ONE Stop: 05/29/24 07:18 Last Admin: 05/29/24 07:23 Dose: 4 mg Documented By: SABINE Phenobarbital (Phenobarbital 65 Mg/Ml Vial) 130 mg IV NOW ONE Stop: 05/29/24 06:55 Last Admin: 05/29/24 07:04 Dose: 130 mg Documented By: EPIFANIO Phenobarbital (Phenobarbital 65 Mg/Ml Vial) 130 mg IV NOW ONE Stop: 05/29/24 08:32 Last Admin: 05/29/24 08:52 Dose: 130 mg Documented By: SABINE Potassium Chloride (Potassium Chloride 20 Meq Tab) 40 meq PO NOW ONE Stop: 05/29/24 07:29 Last Admin: 05/29/24 07:49 Dose: 40 meq Documented By: SABINE Vital Signs Vital signs: Vital Signs - 8 hr 05/29/24 11:00 05/29/24 11:00 05/29/24 11:30 Pulse Rate 83 84 Respiratory Rate 21 16 Blood Pressure 163/84 H 165/79 H Pulse Oximetry 95 94 Oxygen Delivery Method 05/29/24 12:00 05/29/24 12:30 05/29/24 13:00 Pulse Rate 98 H 113 H 99 H Respiratory Rate 26 H 24 Blood Pressure 169/98 H 167/79 H Pulse Oximetry 96 97 97 Oxygen Delivery Method Room Air 05/29/24 13:30 05/29/24 14:00 05/29/24 14:30 Pulse Rate 92 H 77 78 Respiratory Rate 17 21 16 Blood Pressure 164/79 H 148/72 H 143/82 H Pulse Oximetry 96 94 94 Oxygen Delivery Method 05/29/24 15:00 05/29/24 15:30 05/29/24 16:00 Pulse Rate 83 84 85 Respiratory Rate 21 21 23 Blood Pressure 167/85 H 154/74 H 167/89 H Pulse Oximetry 95 95 96 Oxygen Delivery Method Room Air Room Air MDM - Alcohol Lab Data 05/29/24 06:50 05/29/24 06:50 Labs: Lab Results 05/29/24 05/29/24 05/29/24 Range/Units 06:50 10:00 10:00 WBC 6.6 (4.5-11.0) X10^3/uL RBC 3.89 L (4.0-5.2) X10^6/uL Hgb 13.1 (12.0-16.0) g/dL Hct 39.0 (36-46) % MCV 100.2 H (80-100) fL MCH 33.6 (26-34) PG MCHC 33.5 (30-36) % RDW 14.9 H (11.6-14.8) % Plt Count 439 H (150-400) X10^3/uL Neut % (Auto) 52.4 (50-75) % Lymph % (Auto) 39.3 (25-40) % Grundy % (Auto) 6.4 (3-14) % Eos % (Auto) 0.9 L (2-4) % Baso % (Auto) 1.0 (0-2) % Neut # (Auto) 3400 (3044-5917) /uL Lymph # (Auto) 2600 (0260-1709) /uL Grundy # (Auto) 400 (0-900) /uL Eos # (Auto) 100 (0-450) /uL Baso # (Auto) 100 (0-100) /uL Sodium 141 (137-145) mmol/L Potassium 3.3 L (3.4-5.1) mmol/L Chloride 104 (98-107) mmol/L Carbon Dioxide 21 L (22-32) mmol/L BUN 11 (7-17) mg/dL Creatinine 0.62 (0.52-1.04) mg/dL Estimated GFR > 60 (>60) mL/min BUN/Creatinine Ratio 17.7 (6-22) Glucose 81 (80-110) mg/dL Calcium 8.7 (8.4-10.2) mg/dL Magnesium 1.7 (1.6-2.3) mg/dL Total Bilirubin 0.7 (0.2-1.3) mg/dL AST 72 H (14-36) IU/L ALT 56 H (<35) IU/L Alkaline Phosphatase 118 (38-126) U/L Total Protein 7.5 (6.3-8.2) g/dL Albumin 4.3 (3.5-5.0) g/dL Globulin 3.2 (1.7-4.1) g/dL Albumin/Globulin Ratio 1.3 (1.0-2.8) TSH 3.09 (0.47-4.68) uIU/mL Urine Color Yellow Urine Appearance Clear Urine pH 6.0 Normal (4.5-8.0) Ur Specific Stuart 1.025 (1.000-1.035) Urine Protein Trace H (Negative) Urine Glucose (UA) Negative (Negative) g/dL Urine Ketones 1+ H (NEGATIVE) Urine Occult Blood Negative (Negative) Urine Nitrate Negative (Negative) Urine Bilirubin Negative (NEGATIVE) Urine Urobilinogen 0.2 (0.2) E.U./dL Ur Leukocyte Esterase Negative (NEGATIVE) Urine RBC None seen (0-5/HPF) Urine WBC None seen (0-5/HPF) Ur Squamous Epith Cells None seen (0-5/HPF) Urine Bacteria None seen (None) Ur Culture Indicated? Cult not indicated Vol Urine Centrifuged 10ml (spun) Salicylates < 1.0 (<20) mg/dL U Opiates 300ng/mL cut Negative (Negative) Ur Oxycodone Screen Negative (Negative) Urine Methadone Screen Negative (Negative) Acetaminophen < 10 (10-30) ug/mL Ur Barbiturates Screen Negative (Negative) U Tricyclic Antidepress Negative (Negative) Ur Phencyclidine Scrn Negative (Negative) Ur Amphetamines Screen Negative (Negative) U Methamphetamines Scrn Negative (Negative) Ur MDMA Scrn (Ecstasy) Negative (Negative) U Benzodiazepines Scrn Positive H (Negative) Urine Cocaine Screen Negative (Negative) U Marijuana (THC) Screen Negative (Negative) Urine Specific Stuart Normal (Normal) Ethyl Alcohol 64 H ( - 10) mg/dL Ur Creatinine Normal (Normal) SARS-CoV-2 (PCR) (Negative) 05/29/24 Range/Units 13:00 WBC (4.5-11.0) X10^3/uL RBC (4.0-5.2) X10^6/uL Hgb (12.0-16.0) g/dL Hct (36-46) % MCV (80-100) fL MCH (26-34) PG MCHC (30-36) % RDW (11.6-14.8) % Plt Count (150-400) X10^3/uL Neut % (Auto) (50-75) % Lymph % (Auto) (25-40) % Grundy % (Auto) (3-14) % Eos % (Auto) (2-4) % Baso % (Auto) (0-2) % Neut # (Auto) (7954-8343) /uL Lymph # (Auto) (8152-6020) /uL Grundy # (Auto) (0-900) /uL Eos # (Auto) (0-450) /uL Baso # (Auto) (0-100) /uL Sodium (137-145) mmol/L Potassium (3.4-5.1) mmol/L Chloride (98-107) mmol/L Carbon Dioxide (22-32) mmol/L BUN (7-17) mg/dL Creatinine (0.52-1.04) mg/dL Estimated GFR (>60) mL/min BUN/Creatinine Ratio (6-22) Glucose (80-110) mg/dL Calcium (8.4-10.2) mg/dL Magnesium (1.6-2.3) mg/dL Total Bilirubin (0.2-1.3) mg/dL AST (14-36) IU/L ALT (<35) IU/L Alkaline Phosphatase (38-126) U/L Total Protein (6.3-8.2) g/dL Albumin (3.5-5.0) g/dL Globulin (1.7-4.1) g/dL Albumin/Globulin Ratio (1.0-2.8) TSH (0.47-4.68) uIU/mL Urine Color Urine Appearance Urine pH (4.5-8.0) Ur Specific Stuart (1.000-1.035) Urine Protein (Negative) Urine Glucose (UA) (Negative) g/dL Urine Ketones (NEGATIVE) Urine Occult Blood (Negative) Urine Nitrate (Negative) Urine Bilirubin (NEGATIVE) Urine Urobilinogen (0.2) E.U./dL Ur Leukocyte Esterase (NEGATIVE) Urine RBC (0-5/HPF) Urine WBC (0-5/HPF) Ur Squamous Epith Cells (0-5/HPF) Urine Bacteria (None) Ur Culture Indicated? Vol Urine Centrifuged Salicylates (<20) mg/dL U Opiates 300ng/mL cut (Negative) Ur Oxycodone Screen (Negative) Urine Methadone Screen (Negative) Acetaminophen (10-30) ug/mL Ur Barbiturates Screen (Negative) U Tricyclic Antidepress (Negative) Ur Phencyclidine Scrn (Negative) Ur Amphetamines Screen (Negative) U Methamphetamines Scrn (Negative) Ur MDMA Scrn (Ecstasy) (Negative) U Benzodiazepines Scrn (Negative) Urine Cocaine Screen (Negative) U Marijuana (THC) Screen (Negative) Urine Specific Stuart (Normal) Ethyl Alcohol ( - 10) mg/dL Ur Creatinine (Normal) SARS-CoV-2 (PCR) Negative (Negative) Point of Care Testing Glucose POC 71 Urine Dip Bedside Urine Glucose Negative Bedside Urine Bilirubin - Negative Bedside Urine Ketone + 15 Urine Specific Stuart 1.030 Bedside Urine Occult Blood +/- Bedside Urine pH 6.0 Bedside Urine Protein +/- 15 Bedside Urine Urobilinogen - Negative Bedside Urine Nitrite - Negative Bedside Urine Leukocytes - Negative Esterase ECG Data Attestation: I personally reviewed and interpreted this ECG as follows: Prior ECG tracings: available for review Interpretation: Sinus rhythm rate 87 OR 164 QRS is 76 QTC of [address] changes. Patient has prior from 04/03/2024 which appears similar QTC was long on the EKG of 490. MDM Narrative Medical decision making narrative: Labs show white count of 6.6 hemoglobin of 13 platelets of 439. Potassium slightly low at 3.3, sodium is 141 chloride 104 CO2 is 21 BUN 11 creatinine 0.62 AST 72 ALT is 56 alk-phos is 118, TSH is Tylenol, salicylate are negative, ETOH is 64 EKG sinus rhythm rate 87, OR 164 QRS is 76 QTC of 505, no acute ST elevation or depression. UDS positive for benzodiazepine. UA shows 1+ ketones trace protein. Patient received phenobarbital and Zofran. Patient potassium slightly low was replaced orally in the department. Will avoid additional QT prolonging agents. On recheck at 0815 patient is sleeping, still hypertensive but not tachycardic. She woke up after this and stated I feel really weird nursing reported CIWA 13, will give additional dose of phenobarbital. Rechecked at 1030am patient states she was feeling much improved. Her tremors have improved significantly as well heart rates continued to be improved blood pressure is also improved overall. Plan to meet with SODIUM CHLORITE OPERATOR patient states she was supposed to go to [facility] for inpatient stay on Tuesday. Patient has bed at [facility], plan for S transport as patient does not have safe transportation on her. Discharge Plan Departure Patient Disposition: Xfer Inpatient Rehab Clinical Impression: Alcohol withdrawal syndrome Prescriptions: No Action fluoxetine 40 mg capsule 80 mg PO DAILY trazodone 50 mg tablet 100 mg PO ONCE PM PRN (Reason: Insomnia) aspirin 81 mg tablet,delayed release (DR/EC) 81 mg PO DAILY nitroglycerin 0.6 mg tablet, sublingual 0.6 mg sublingual DIRECTED PRN (Reason: Chest Pain) hydroxyzine HCl 10 mg tablet 10 mg PO 3XD PRN (Reason: anxiety) progesterone micronized 100 mg capsule 100 mg PO ONCE PM ranolazine 1,000 mg tablet extended release 12 hr 1,000 mg PO BID atorvastatin 80 mg tablet 80 mg PO DAILY chlordiazepoxide HCl 25 mg capsule See Rx Instructions .ROUTE .COMPLEX Qty: 15 0RF Rx Instructions: 50 mg orally ;Day 1: 50mg [id number] 2: 50mg [id number] 3: 50mg [id number] 4: 50mg [id number] 5: 50mg POqhs chlordiazepoxide HCl 25 mg capsule See Rx Instructions .ROUTE .COMPLEX Qty: 11 0RF Rx Instructions: Take 1 tablet p.o. Q 6 hours times 24 hours then 1 tablet p.o. q.8 hours times 24 hours, then 1 tablet p.o. q.12 hours times 24 hours, then 1 tablet p.o. q.h.s. x2 naltrexone 50 mg Tablet 50 mg PO DAILY levetiracetam 500 mg tablet 500 mg PO BID pantoprazole 40 mg tablet,delayed release (DR/EC) 40 mg PO DAILY lorazepam 1 mg tablet 1 mg PO PRN PRN (Reason: Anxiety) hydroxyzine HCl 10 mg tablet 10 mg PO 3XD PRN (Reason: anxiety) ondansetron 4 mg tablet,disintegrating 4 mg PO PRN PRN (Reason: Nausea And Vomiting) metoprolol tartrate 25 mg tablet 25 mg PO BID
[2024-05-29] MEDS: ONDANSETRON 4 MG/2 ML INJ IV (07:23)
--- NOTE | 2024-05-29 07:36 | EKG_ITS ---
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
[2024-05-29 07:49] LABS: TSH w/ Reflex to FT4 3.09 uIU/mL (0.47-4.68)
[2024-05-29] MEDS: POTASSIUM CHLORIDE 20 MEQ TAB 40 MEQ PO (07:49)
[2024-05-29 10:17] LABS: Appearance Urine UA CLEAR; Bilirubin Urine UA NEGATIVE (NEGATIVE); Color Urine UA YELLOW; Glucose Urine UA NEGATIVE (Negative); Ketones Urine UA 1+ (NEGATIVE); Leukocyte Esterase Urine UA NEGATIVE (NEGATIVE); Nitrite Urine UA NEGATIVE (Negative); Occult Blood Urine UA NEGATIVE (Negative); Protein Urine UA TRACE (Negative); Specific Gravity Urine UA 1.025 (1.000-1.035); Ur Creatinine Normal (Normal); Ur Specific Gravity Normal (Normal); Urine Amphetamines Negative (Negative); Urine Barbiturates Negative (Negative); Urine Benzodiazepines Positive (Negative); Urine Cocaine Negative (Negative); Urine MDMA Negative (Negative); Urine Methadone Negative (Negative); Urine Methamphetamines Negative (Negative); Urine Opiates Negative (Negative); Urine Oxycodone Negative (Negative); Urine Phencyclidine Negative (Negative); Urine THC Negative (Negative); Urine Tricyclic Antidepressant Negative (Negative); Urine pH Normal (Normal); Urobilinogen Urine UA 0.2 E.U./dL (0.2)
[2024-05-29 10:18] LABS: Urine Volume 10mL (spun)
[2024-05-29 10:19] LABS: Bacteria Urine None Seen; Culture Indicated Urine Cult Not Indicated; RBC Urine None Seen (0-5/HPF); Squamous Epithelial Cell Urine None Seen (0-5/HPF); WBC Urine None Seen (0-5/HPF)
[2024-05-29] MEDS: LORazepam 0.5 MG TABLET 1 MG PO (13:19)
[2024-05-29 13:30] LABS: COVID19 -Nasal RAPID Negative (Negative)
--- NOTE | 2024-05-29 14:30 | CM.SWNOTE ---
ED KILN PUSHER Assessment KILN PUSHER/Director Telehealth Assessment Time Spent with Patient Start date 05/29/24 Visit Start Time 12:40 End date 05/29/24 Visit End Time 12:55 Total time Care Management spent on 15 minutes patient visit-in minutes Substance Abuse Screening Include Onset, Duration, Intensity Presenting Problem Patient presents to ED due to concern for ETOH withdrawals seeking detox. Patient endorses she had a bed secured for her at [facility] for Tuesday but she blacked out and lost 3 days. Patient endorses she has been drinking daily 1/5 or vodka and a 6 pack of white claws. Patient's BAL was 64 this morning, patient states last drink was last night. Precipitating Event(s) Patient endorses that her ETOH use is impacting her health, patient states that she can't take it, patient endorses concern for not eating/ drinking and not managing hygiene as well. Patient states that she tried to go [facility] on Tuesday and does not want to go back. Patient states that she is worried she will just go drink if she goes home. Patient endorses this is her fourth time in recent months withdrawing. Patient Strengths Patient is seeking help and treatment, patient has sober friends. Current Behavioral Health Provider(s) Patient states she was seeing Include Facility, Provider, Ph. # a SUDP provider several months ago but has not seen her recently. Patient states she has been trying to go to AA meetings as well. Patient received referral for [facility] in April and reports that they did not take her [employer] insurance and she states she did not seek out help from them further. Patient sees PCP Dr. Bello at [facility] in [place]. Family Hx of Behavioral Abuse Patient has hx of ETOH use on her mother's side of the family. Rehab Facilities? ((Date(s), Location(s) Patient has hx of 30 day rehab ) at [facility] in [place] about a year ago. Patient states she has been to [facility] in recent months. History of Withdrawal? Seizures? Patient has hx of seizures and hallucinations. Patient denies concern for these symptoms at this time. Patient endorses concern for anxiety, shakiness, and cramping currently. Most recent CIWA at 1315 is 5. Longest Period of Sobriety 6 months Psychosocial information & Support Patient is 59 y/o female who Systems resides in [place]. Patient has support from friends and family. Patient states her mother lives in [place]. Patient states her mother recently bought her a boat because she is concerned about finances and living expenses. 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 Legal Concerns Legal Matters - Outstanding Issues None reported Mental Status Orientation (Person/Place/Time) A/Ox4 Stated Mood better Affect (Congruent with Mood?) anxious, congruent with mood Thought Content - Specify/Describe Patient denies current concern Obsessions, Delusions, Hallucinations for hallucinations. Patient states upon last withdrawal when she was experiencing hallucinations it was like a movie. Thought Processes (Hpkelha-Eakorbyy-Ktph coherent Zjbykylq-Uurnkupk-Pvjbjlpzdr- Bgvfxrxvgcaqmh-Qkzukpx-Tapkzwkrrfsp- Thought Blocking) Speech (Idmoah-Lsoa-Rvqgbrn-Rapid-Soft- soft/slow Loud-Pressured) Motor (Aepgmr-Uxmyyugdk-Mvmg-Other) excessive, patient presents with shakiness. Insight (Igsv-Fckl-Vvea/Limited) fair Judgement (Zctv-Rjlo-Anyq/Limited) fair Impulse Control (Adequate-Impaired) adequate during assessment Memory (Sormegkzo-Vfmreu-Acbkiw, impaired, not formally Impaired-Intact) assessed. Patient states upon arrival she did not know where that last 3 days went. Concentration (Intact-Impaired) intact Attention (Intact-Impaired) intact Behavior (Appropriate-Inappropriate) Appropriate Additional Comment Patient presents as calm, cooperative and communicative. Risk Assessment Suicidal Ideation (Plan) Yes Homicidal Ideation (Plan) No Comment Patient endorses concern for passive SI Sometimes patient denies plans or intent. Patient states I could never do that to my mother. Intervention Intervention KILN PUSHER enters room to meet with patient. Patient endorses concern for her daily ETOH use, concern for withdrawals and requesting detox and seeking inpatient rehab. It is the opinion of this KILN PUSHER that patient would benefit from detox and [facility] inpatient rehab as well as IOP to follow . KILN PUSHER reviews this with ED provider Dr. Valentin who indicates agreement and understanding. KILN PUSHER calls [facility] and leaves . KILN PUSHER calls [facility] and it is reported that they have beds, patient conducts phone screening, KILN PUSHER faxes clinicals for review. Plan RA Plan KILN PUSHER and ED team to continue to seek detox bed for patient. [place]as, TWISTING PRESS OPERATOR
--- NOTE | 2024-05-29 16:27 | CM.SWNOTE ---
ED PROFILING MACHINE OPERATOR Note [facility] calls back and states that they can accept patient, they review with PROFILING MACHINE OPERATOR that patient left [facility] intake screening the other day and patient was in their undergarments. [facility] states that they can take patient at 1700. PROFILING MACHINE OPERATOR calls [employer], it is reported that they can not get transport that quickly. PROFILING MACHINE OPERATOR calls [facility], it is reported that they could not get patient to [facility] until after 1820. PROFILING MACHINE OPERATOR calls [facility] and it is reported that they could get patient to [facility] at 1730. PROFILING MACHINE OPERATOR calls [facility] regarding patient's BLS transport and soonest arrival time at 1730, they indicate agreement and understanding. Plan: patient accepted at [facility] to transfer via [facility] this evening. La Blas, OUTREACH COUNSELOR
== END 2024-05-29 16:47 ==
PROVIDERS: Student in an Organized Health Care Education/Training Program; Emergency Provider Emergency Medicine
DX: F10.939 Alcohol use, unspecified with withdrawal, unspecified (principal)
CPT/HCPCS: 36415; 80053; 80305; 80320; 80329; 81001; 81003; 82962; 83735; 84443; 85025; 87635; 93005; 96374; 96375; 96376; 99284; G0480; J2405; J2560